=== PATIENT | female | born 1990 | race African-American/Black ===

== ENCOUNTER 2018-07-09 10:38 | Emergency (ER) | payer SELFPAY ==
[~2018-07-09] VITALS: Ht 152.4 cm; Wt 65.5 kg
[2018-07-09] MEDS ORDERED: FLEXERIL 1010 MG/TAB PO (12:04)
[2018-07-09 12:39] VITALS: BP 127/88; PULSE 72; TEMP 97.5
== END 2018-07-09 12:30 | disposition home or self-care (01) ==
LOC: COL.ER 10:38
DX: S16.1XXA Strain of muscle, fascia and tendon at neck level, initial encounter (principal); F32.9 Major depressive disorder, single episode, unspecified; F17.210 Nicotine dependence, cigarettes, uncomplicated; Z90.49 Acquired absence of other specified parts of digestive tract; V49.88XA Car occupant (driver) (passenger) injured in other specified transport accidents, initial encounter

== ENCOUNTER 2018-11-21 17:10 | Emergency (ER) | payer OTHER ==
[~2018-11-21] VITALS: Ht 152.4 cm; Wt 65.5 kg
[~2018-11-21 17:10] MED LIST: FLEXERIL 1010 MG/TAB PO
[2018-11-21 17:17] VITALS: TEMP 98.1
[2018-11-21 18:02] LABS: COLLECTION METHOD CLEAN CATCH
[2018-11-21 18:12] LABS: BASO # 0.1 (0.0-0.2); BASO % 0.7 % (0.0-2.0); EOS # 0.2 (0.0-0.7); EOS % 1.6 % (0-4.0); GRAN # 7.6 (1.4-6.5); GRAN % 67.6 % (42.2-75.2); HEMATOCRIT 44.7 % (37.0-47.0); HEMOGLOBIN 14.8 g/dl (12.5-16.0); LYMPH # 2.6 (1.2-3.4); LYMPH % 23.3 % (20.0-51.0); MEAN CELL VOLUME 88 fl (80.0-100.0); MEAN CORPUSCULAR HEMOGLOBIN 29 pg (27.0-31.0); MEAN CORPUSCULAR HGB CONC 33 g/dl (33.0-37.0); MONO # 0.7 (0.1-0.6); MONO % 6.4 % (1.7-9.3); PLATELET COUNT 358 K/mm3 (130-400); RED BLOOD COUNT 5.07 M/mm3 (4.10-5.30); REDCELL DISTRIBUTION WIDTH-CV 12.3 % (11.5-14.5)
[2018-11-21 18:21] LABS: ALANINE AMINOTRANSFERASE < 6 U/L (9-52); ALBUMIN 4.7 gm/dL (3.5-5.0); ALKALINE PHOSPHATASE 62 U/L (50-136); ANION GAP 10 mmol/L (7-16); AST,SGOT 27 U/L (15-37); BILIRUBIN,TOTAL 0.3 mg/dL (0.0-1.0); BLOOD UREA NITROGEN 13 mg/dL (7-17); CALCIUM 9.9 mg/dL (8.4-10.2); CARBON DIOXIDE 27 mmol/L (22-30); CHLORIDE 105 mmol/L (98-107); CREATININE, serum 0.73 (0.52-1.25); GLUCOSE 73 mg/dL (74-106); LIPASE 49 U/L (23-300); SODIUM 142 mmol/L (137-145); TOTAL PROTEIN 8.4 gm/dL (6.4-8.2)
[2018-11-21 18:22] LABS: C-REACTIVE PROTEIN < 0.5 mg/dL (0.0-0.9)
[2018-11-21 18:31] LABS: MUCOUS Present /lpf; PH 7 (5-8); SQUAMOUS EPITHELIAL 0-2 /hpf; URINE APPEARANCE Hazy; URINE BACTERIA None Seen /hpf; URINE BILIRUBIN Negative (NEGATIVE); URINE BLOOD 3+ (NEGATIVE); URINE COLOR Yellow; URINE GLUCOSE Negative (NEGATIVE); URINE KETONE Negative (NEGATIVE); URINE LEUKOCYTE ESTERASE Trace (NEGATIVE); URINE NITRATE Negative (NEGATIVE); URINE PROTEIN(semi-quant) Negative (NEGATIVE); URINE RBC >50 /hpf; URINE UROBILINOGEN >=4.0 mg/dL (NEGATIVE)
[2018-11-21] MEDS ORDERED: OMNICEF 300MG300 MG PO (19:18)
[2018-11-21] MEDS ORDERED: ZOFRAN ODT4 MG PO (19:24)
[2018-11-21 20:49] VITALS: BP 130/82; PULSE 80
== END 2018-11-21 20:30 | disposition home or self-care (01) ==
LOC: COL.ER 17:10
PROVIDERS: Physician Assistant
DX: N30.90 Cystitis, unspecified without hematuria (principal); F17.210 Nicotine dependence, cigarettes, uncomplicated
CPT/HCPCS: A4216; J0696; J1885; J2405; J7030; Q9967

== ENCOUNTER 2018-12-23 01:31 | Emergency (ER) | payer OTHER ==
[~2018-12-23] VITALS: Ht 172.7 cm; Wt 63.6 kg
[~2018-12-23 01:31] MED LIST changes: +OMNICEF 300MG300 MG PO; +ZOFRAN ODT4 MG PO
[2018-12-23 02:59] LABS: BASO # 0.1 (0.0-0.2); BASO % 0.6 % (0.0-2.0); EOS # 0.1 (0.0-0.7); EOS % 1.3 % (0-4.0); GRAN # 6.7 (1.4-6.5); GRAN % 61.8 % (42.2-75.2); HEMATOCRIT 42.9 % (37.0-47.0); HEMOGLOBIN 14.2 g/dl (12.5-16.0); LYMPH # 2.9 (1.2-3.4); MEAN CELL VOLUME 89 fl (80.0-100.0); MEAN CORPUSCULAR HEMOGLOBIN 29 pg (27.0-31.0); MEAN CORPUSCULAR HGB CONC 33 g/dl (33.0-37.0); MEAN PLATELET VOLUME 11.3 fl (7.4-10.4); MONO % 8.8 % (1.7-9.3); PLATELET COUNT 296 K/mm3 (130-400); RED BLOOD COUNT 4.84 M/mm3 (4.10-5.30); REDCELL DISTRIBUTION WIDTH-CV 12.1 % (11.5-14.5)
[2018-12-23] MEDS ORDERED: PROAIR HFA0.09 MG/AC IH (03:04)
[2018-12-23] MEDS ORDERED: PHENERGAN W/CO120 M1 PO (03:05)
[2018-12-23 03:09] LABS: BILIRUBIN,TOTAL 0.2 mg/dL (0.0-1.0); CALCIUM 9.1 mg/dL (8.4-10.2); CREATININE, serum 0.67 (0.52-1.25); TOTAL PROTEIN 7.3 gm/dL (6.4-8.2)
[2018-12-23 03:36] VITALS: TEMP 98.1
[2018-12-23] MEDS ORDERED: TESSALON P100 MG/CAP PO (04:38)
[2018-12-23] MEDS ORDERED: ZOFRAN ODT4 MG PO (04:38)
[2018-12-23 04:57] VITALS: BP 99/69; PULSE 65
== END 2018-12-23 05:02 | disposition home or self-care (01) ==
LOC: COL.ER 01:31
PROVIDERS: Emergency Medicine
DX: J11.1 Influenza due to unidentified influenza virus with other respiratory manifestations (principal); Z87.891 Personal history of nicotine dependence; Z88.0 Allergy status to penicillin
CPT/HCPCS: J1885; J2405; J7030

== ENCOUNTER 2020-09-10 23:07 | Emergency (ER) | payer SELFPAY ==
[~2020-09-10] VITALS: Ht 149.9 cm; Wt 63.6 kg
[~2020-09-10 23:07] MED LIST changes: +PHENERGAN W/CO120 M1 PO; +PROAIR HFA0.09 MG/AC IH; +TESSALON P100 MG/CAP PO
[2020-09-10 23:45] LABS: COLLECTION METHOD CLEAN CATCH
[2020-09-10 23:59] LABS: MUCOUS Present /lpf; PH 7 (5-8); URINE APPEARANCE Hazy; URINE BACTERIA Rare /hpf; URINE BILIRUBIN Negative (NEGATIVE); URINE BLOOD Negative (NEGATIVE); URINE COLOR Yellow; URINE GLUCOSE Negative (NEGATIVE); URINE KETONE Negative (NEGATIVE); URINE LEUKOCYTE ESTERASE 1+ (NEGATIVE); URINE NITRATE Negative (NEGATIVE); URINE PROTEIN(semi-quant) Negative (NEGATIVE); URINE UROBILINOGEN Negative (NEGATIVE)
[2020-09-11] LABS: BASO % 0.6 % (0.0-2.0); EOS # 0.1 (0.0-0.7); EOS % 2.1 % (0-4.0); GRAN % 59.2 % (42.2-75.2); HEMATOCRIT 42.7 % (37.0-47.0); HEMOGLOBIN 14.2 g/dl (12.5-16.0); LYMPH # 1.7 (1.2-3.4); LYMPH % 25.4 % (20.0-51.0); MEAN CELL VOLUME 87 fl (80.0-100.0); MEAN CORPUSCULAR HEMOGLOBIN 29 pg (27.0-31.0); MEAN CORPUSCULAR HGB CONC 33 g/dl (33.0-37.0); MEAN PLATELET VOLUME 11.2 fl (7.4-10.4); MONO # 0.8 (0.1-0.6); MONO % 12.4 % (1.7-9.3); PLATELET COUNT 314 K/mm3 (130-400); RED BLOOD COUNT 4.92 M/mm3 (4.10-5.30); REDCELL DISTRIBUTION WIDTH-CV 12.2 % (11.5-14.5)
[2020-09-11 00:07] LABS: ALBUMIN 4.4 gm/dL (3.5-5.0); BILIRUBIN,TOTAL 0.4 mg/dL (0.0-1.0); CALCIUM 9.5 mg/dL (8.4-10.2); CREATININE, serum 0.65 (0.52-1.25); POTASSIUM 3.8 mmol/L (3.4-5.0); TOTAL PROTEIN 8.2 gm/dL (6.4-8.2)
[2020-09-11 01:15] VITALS: BP 110/61; PULSE 77; TEMP 98.9
== END 2020-09-11 01:16 | disposition home or self-care (01) ==
LOC: COL.ER 23:07
PROVIDERS: Emergency Medicine
DX: U07.1 COVID-19 (principal); R10.12 Left upper quadrant pain; Z32.02 Encounter for pregnancy test, result negative
CPT/HCPCS: J1885; J2405; J7120